=== PATIENT | female | born 1985 | race African-American/Black ===

== ENCOUNTER 2020-11-22 04:37 | Emergency (ER) | payer MEDICAID ==
[~2020-11-22] VITALS: Ht 167.6 cm; Wt 61.0 kg
[2020-11-22 04:41] VITALS: BP 103/70
[2020-11-22] MEDS ORDERED: ZIPRASIDONE HCL 20MG CAPSULE PO ONE (05:30)
[2020-11-22] MEDS ORDERED: ACETAMINOPHEN 325MG TABLET PO ONE (09:15)
== END 2020-11-22 11:20 | disposition home or self-care (01) ==
LOC: ER 04:37
DX: F19.10 Other psychoactive substance abuse, uncomplicated (principal); F23 Brief psychotic disorder; G93.49 Other encephalopathy; T74.21XA Adult sexual abuse, confirmed, initial encounter
CPT/HCPCS: 99283